=== PATIENT | female | born 1940 | race Caucasian/White ===

== ENCOUNTER 2017-10-06 15:57 | Emergency (ER) | payer OTHER ==
[~2017-10-06] VITALS: Ht 167.6 cm; Wt 81.6 kg
[~2017-10-06 15:57] MED LIST: GABA100C9; LEVO25TA49; OME20GT
[2017-10-06 17:25] LABS: Basophils # (auto) 0.1 uL; Basophils % (auto) 0.8 % (0.0-2.0); Eosinophils # (auto) 0.4 uL; Eosinophils % (auto) 5.7 % (0.0-7.0); Hematocrit 44.7 % (36.0-46.0); Hemoglobin 15.2 g/dL (12.2-16.2); Lymphocytes # (auto) 2.2 uL; Lymphocytes % (auto) 33.2 % (10.0-50.0); Mean Corpuscular Hemoglobin 30.8 pg (28.0-32.0); Mean Corpuscular Volume 90.6 fL (80.0-100.0); Monocytes # (auto) 0.4 uL; Monocytes % (auto) 6.3 % (0.0-12.0); Neutrophils # (auto) 3.6 uL; Nucleated Red Blood Cells % 0.1 %; Platelet Count (auto) 203 10^3/uL (140-450); Red Blood Cells 4.93 10^6/uL (4.0-5.20); White Blood Cell 6.7 10^3/uL (4.4-10.8)
[2017-10-06 17:49] LABS: Alanine Aminotransferase 29 U/L (13-56); Albumin 3.6 g/dL (3.4-5.0); Alkaline Phosphatase 83 U/L (45-117); Anion Gap 6 (5-15); Aspartate Aminotransferase 21 U/L (15-37); BUN/Creatinine Ratio 11.8; Bilirubin, Total 0.3 mg/dL (0.2-1.0); Blood Urea Nitrogen 12 mg/dL (7-18); Calcium 8.3 mg/dL (8.5-10.1); Carbon Dioxide 28 mmol/L (21-32); Chloride 110 mmol/L (98-107); GFR African American 67 mL/min; GFR Non-African American 56 mL/min; Glucose 121 mg/dL (74-106); Potassium 3.9 mmol/L (3.5-5.1); Sodium 144 mmol/L (136-145); Total Protein 6.9 g/dL (6.4-8.2)
[2017-10-06 22:08] VITALS: BP 130/86
== END 2017-10-06 23:33 | disposition left against medical advice (07) ==
LOC: ER 15:57 → EDBD 15:57 → ER 23:33
DX: R07.9 Chest pain, unspecified (principal); R42 Dizziness and giddiness; R53.1 Weakness; E03.9 Hypothyroidism, unspecified; J45.909 Unspecified asthma, uncomplicated; K21.9 Gastro-esophageal reflux disease without esophagitis; R06.02 Shortness of breath; Z88.0 Allergy status to penicillin; Z88.6 Allergy status to analgesic agent; Z90.710 Acquired absence of both cervix and uterus
CPT/HCPCS: 36415; 71046; 80053; 83735; 83880; 84443; 84484; 85025; 93005

== ENCOUNTER 2025-03-10 18:42 | Inpatient (IN) | payer OTHER ==
[~2025-03-10] VITALS: Ht 162.6 cm; Wt 88.3 kg
[~2025-03-10 18:42] MED LIST changes: +GABA-1308; -GABA100C9; +LEVO25TA2; -LEVO25TA49
--- NOTE | 2025-03-10 19:08 | ED.PDOC ---
SOB-HPI HPI Comments HPI: 84 year old female presents to the ED via EMS with a chief complaint of shortness of breath onset 2 days. Per EMS, patient experienced a fall 3 days ago, since then has been experiencing ribcage pressure, shortness of breath. Upon their arrival O2 was was 90% RA, placed on 2L O2 improved to 98%, patient does not use O2 at home. Patient states she lost her balance fell, no head injury. She describes ribcage discomfort as a pressure sensation. Denies head injury, LOC, nausea, vomiting, diarrhea, dizziness, blurred vision, chest pain. No other symptoms or modifying factors present at this time. Initial Vitals BP: 131/71 HR: 88 RR: 18 O2: 98% Temp: 98.6 F Past Medical History: asthma, fibromyalgia, neuropathy Past Surgical History: Denies Social History: Denies ETOH, smoking, and drug use. Medications: Denies Allergies: Acetaminophen, codeine, hydrocodone, penicillin KAY: SOB, RIBCAGE BRUISE L ANTERIOR WALL. TRACE EDEMA., PALE. BRUISE no head or neck injury. No loss of consciousness. HPI: Poor Historian. REVIEW OF SYSTEMS: CONSTITUTIONAL: Denies acute: fever, diaphoresis, chills, generalized weakness. HEAD: Denies acute: headache, photophobia Eyes: Denies acute: Double vision, vision loss, eye pain, eye discharge. EARS: Denies acute: tinnitus, hearing loss, ear discharge, ear pain, THROAT: Denies acute: sore throat, swelling, difficulty swallowing , pain with swallowing, change in voice. NECK: Denies acute: neck pain, neck swelling, stiff neck. HEART: Denies acute : chest pain, palpitations, LUNGS: Denies acute: wheezing, cough, hemoptysis ABDOMEN: Denies acute: abdominal pain, Nausea, Vomiting, diarrhea, melena , hematemesis, hematochezia SKIN: Denies acute: rash, redness, lesions, itchiness. EXTREMITIES: Denies acute: calf pain, numbness, tingling, weakness, denies pain in extremity. Denies acute: Low back pain. Neuro: Denies acute: focal neurological deficit, motor or sensory focal neurological deficit, tremors, seizure like activity, confusion, dizziness, change in mental status, loss of bowel or bladder function, cauda equina like symptoms. : Denies acute: dysuria, hematuria, flank pain, increase in urinary frequency. PSYCH: Denies acute: hallucination, suicidal ideation, homicidal ideation. FEMALE: Denies acute: abnormal vaginal bleeding, foul odor, unusual discharge. PHYSICAL EXAM: General: ----mild----acute distress, awake and alert. Head: normocephalic, atraumatic. Neck: supple, trachea is midline, no swelling. Throat: Normal phonation. Eyes:, no erythema, no purulent discharge, no proptosis, no icterus. Heart: regular rate, regular rhythm, no significant murmur appreciated. Lungs: no apparent respiratory distress, on supplemental oxygen Able to speak in full sentences. No wheezing, no rhonchi, no crackles. No stridors Clear to auscultation bilaterally. Abdomen: non tender to palpation, non distended, soft, no guarding, no rebound, + bowel sounds. Left anterior chest wall ribcage tenderness to palpation. Neuro: Awake, Alert, oriented to name, self, situation, follows commands GCS=15. Speech is normal. Skin: no petechia, no purpura, no cyanosis, slightly-pale, not jaundice. Lower extremities: --trace - Pitting edema no deformity, no focal swelling, no calf TTP. Makes eye contact. moves all four extremities. Face: no apparent facial droop. ED COURSE: DISCLAIMER: This medical document was created using an electronic medical record system with voice recognition software and computerized dictation system. Although this document has been carefully reviewed, there might still be some phonetic and typographical errors. Occasional wrong-word or "sound-alike" substitutions may have occurred due to the inherent limitations of voice recognition software. These areas are purely typographical due to imperfections of the software programs and do not reflect any compromise in the patient's medical care. Please read the chart carefully and recognize, using context, where these substitutions have occurred. 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 Was a procedure done?: No X-Ray, Labs, Meds, VS Vital Signs Date Time Temp Pulse Resp B/P (MAP) Pulse Ox O2 Delivery O2 Flow Rate FiO2 03/10/25 23:15 97.9 79 17 123/78 (93) 99 97.9 03/10/25 21:33 16 94 Room Air* 0 21 03/10/25 21:12 97.9 79 19 123/52 (75) 92 97.9 03/10/25 18:49 98.6 88 18 131/71 98 98.6 Lab Test 03/10/25 20:45 03/10/25 19:21 Range/Units Troponin I High Sensitivity 4 4 </=34 ng/L White Blood Count 13.3 H 4.4-10.8 10^3/uL Red Blood Count 4.53 4.0-5.20 10^6/uL Hemoglobin 13.9 12.2-16.2 g/dL Hematocrit 40.4 36.0-46.0 % Mean Corpuscular Volume 89.1 80.0-100.0 fL Mean Corpuscular Hemoglobin 30.8 28.0-32.0 pg Mean Corpuscular Hemoglobin Concent 34.6 32.0-36.0 g/dL Red Cell Distribution Width 12.6 11.8-14.3 % Platelet Count 199 140-450 10^3/uL Mean Platelet Volume 8.1 6.9-10.8 fL Neutrophils (%) (Auto) 81.8 H 37.0-80.0 % Lymphocytes (%) (Auto) 11.0 10.0-50.0 % Monocytes (%) (Auto) 6.6 0.0-12.0 % Eosinophils (%) (Auto) 0.3 0.0-7.0 % Basophils (%) (Auto) 0.3 0.0-2.0 % Neutrophils # (Auto) 10.9 H 1.6-8.6 10 ^3/uL Lymphocytes # (Auto) 1.5 0.4-5.4 10 ^3/uL Monocytes # (Auto) 0.9 0-1.3 10 ^3/uL Eosinophils # (Auto) 0 0-0.8 10 ^3/uL Basophils # (Auto) 0 0-0.2 10 ^3/uL Nucleated Red Blood Cells 0.0 % Sodium Level 143 136-145 mmol/L Potassium Level 3.9 3.5-5.1 mmol/L Chloride Level 102 98-107 mmol/L Carbon Dioxide Level 32 H 20-31 mmol/L Anion Gap 9 5-15 Blood Urea Nitrogen 19 9-23 mg/dL Creatinine 1.26 H 0.550-1.02 mg/dL Glomerular Filtration Rate Calc 42 >90 mL/min BUN/Creatinine Ratio 15.1 10.0-20.0 Serum Glucose 186 H 74-106 mg/dL Calcium Level 8.4 L 8.7-10.4 mg/dL Total Bilirubin 0.7 0.2-1.0 mg/dL Aspartate Amino Transferase (AST) 21 13-40 U/L Alanine Aminotransferase (ALT) 12 7-40 U/L Alkaline Phosphatase 61 46-116 U/L Creatine Kinase 165 H 34-145 U/L B-Type Natriuretic Peptide 42.19 0-100 pg/mL Total Protein 6.1 5.7-8.2 g/dL Albumin 3.8 3.2-4.8 g/dL Current Medications Medications (Trade) Dose Ordered Sig/Chantal Route Start Time Stop Time Status Last Admin Ceftriaxone Sodium 50 ml @ 100 mls/hr ONCE ONCE IV 03/10/25 21:00 03/10/25 21:29 DC 03/10/25 21:11 Albuterol (Ventolin Medneb) 2.5 mg ONCE ONCE NEB 03/10/25 21:15 03/10/25 21:16 DC 03/10/25 21:28 Ipratropium [place] (Atrovent Medneb) 1 mg ONCE ONCE NEB 03/10/25 21:15 03/10/25 21:16 DC 03/10/25 21:28 Methylprednisolone Sodium Succinate (Solu Medrol) 125 mg ONCE ONCE IV 03/10/25 21:15 03/10/25 21:16 DC 03/10/25 21:16 [facility] [id number] [place] [id number] Ph: [phone] DIAGNOSTIC IMAGING Diagnostic Imaging Report : [id number] Signed PATIENT: TINO VILLANUEVA ACCT: [id number] UNIT: [id number] : 1940 LOC: ER ROOM / BED: / AGE / SEX: 84 / F ADM STATUS: REG ER SERVICE 08 ORDERING PHYSICIAN: ROMAINE ASHLEY DO PROCEDURE(s): CXRP - CHEST PORTABLE REASON: sob ORDER NUMBER(s): [id number], ACCESSION NUMBER(s): [id number] CHEST RADIOGRAPH Indication: sob Technique: Single frontal view of the chest was obtained COMPARISON: None FINDINGS: Lines and Tubes: None Lungs: Left lower lobe opacity may reflect atelectasis or mild pneumonia Pleura: Small pleural effusion. No pneumothorax. Cardiomediastinal contours: Unremarkable Bones: Unremarkable IMPRESSION: 1. Left lower lobe opacity may reflect atelectasis or mild pneumonia. 2. Small left pleural effusion. ATED BY: ELLIOTT FRANCIS MD DICTATED DATE/TIME: 03/10/252002 SIGNED BY: ELLIOTT FRANCIS MD SIGNED DATE/TIME: 03/10/252002 CC: Time of 1ST Reevaluation: 19:20 Reevaluation 1ST: Unchanged Time of 2ND Reevaluation: 21:19 (The case was discussed with the admitting team (HPI, physical exam, labs and diagnostic tests that were available at the time of disposition, ED course, treatment plan) on the phone. They agreed to evaluate the patient to their service and assume care of this patient from this point forward. --- Leila. He requested to order a CT of chest and breathing treatment) Patient Education/Counseling: Diagnosis, Treatment Family Education/Counseling: No Family Present Departure 1 Departure Time of Disposition: 20:56 Impression: Primary Impression: Hypoxemia Additional Impressions: Dyspnea Fall Pneumonia Pleural effusion Pulmonary embolus Disposition: ADMITTED INPATIENT Admit to: Tele Condition: Guarded Discharged With: Self Critical Care Note Critical Care Time?: No I personally scribed for ROMAINE ASHLEY DO ([email or web address]) on 03/10/25 at 19:08. Electronically submitted by Catia [email or web address]). I personally scribed for ROMAINE ASHLEY DO ([email or web address]) on 03/10/25 at 19:22. Electronically submitted by Catia Pittman ([email or web address]). I personally scribed for ROMAINE ASHLEY DO ([email or web address]) on 03/10/25 at 20:37. Electronically submitted by Catia Pittman ([email or web address]). ROMAINE ASHLEY DO Mar 10, 2025 19:08
[2025-03-10 19:37] LABS: Hematocrit 40.4 % (36.0-46.0); Hemoglobin 13.9 g/dL (12.2-16.2); Mean Corpuscular Hemoglobin 30.8 pg (28.0-32.0); Mean Corpuscular Volume 89.1 fL (80.0-100.0); Nucleated Red Blood Cells % 0.0 %
[2025-03-10 19:56] LABS: Alanine Aminotransferase 12 U/L (7-40); Albumin 3.8 g/dL (3.2-4.8); Alkaline Phosphatase 61 U/L (46-116); Anion Gap 9 (5-15); BUN/Creatinine Ratio 15.1 (10.0-20.0); Blood Urea Nitrogen 19 mg/dL (9-23); Calcium 8.4 mg/dL (8.7-10.4); Carbon Dioxide 32 mmol/L (20-31); Chloride 102 mmol/L (98-107); Creatine Kinase IFCC 165 U/L (34-145); Glucose 186 mg/dL (74-106); Potassium 3.9 mmol/L (3.5-5.1); Sodium 143 mmol/L (136-145); Total Protein 6.1 g/dL (5.7-8.2)
[2025-03-10 19:57] LABS: Bilirubin, Total 0.7 mg/dL (0.2-1.0)
--- NOTE | 2025-03-10 20:06 | DVH ---
CHEST RADIOGRAPH Indication: sob Technique: Single frontal view of the chest was obtained COMPARISON: None FINDINGS: Lines and Tubes: None Lungs: Left lower lobe opacity may reflect atelectasis or mild pneumonia Pleura: Small pleural effusion. No pneumothorax. Cardiomediastinal contours: Unremarkable Bones: Unremarkable IMPRESSION: 1. Left lower lobe opacity may reflect atelectasis or mild pneumonia. 2. Small left pleural effusion.
[2025-03-10] MEDS: methylPREDNISolone SOD SUCC 125 MG/2 ML VL IV ONE (21:16)
[2025-03-10] MEDS: IPRATROPIUM BROM 0.5 MG/2.5ML INH SOL NEB ONE (21:28)
[2025-03-10] MEDS: ALBUTEROL SULF 2.5 MG/0.5ML(0.5%) NEB SOLN NEB ONE (21:28)
[2025-03-10] MEDS ORDERED: IOHEXOL 350 MG/ML 100ML IJ ONE (21:29)
--- NOTE | 2025-03-10 23:23 | DVH ---
CTA Chest with intravenous contrast INDICATION: sob COMPARISON: None TECHNIQUE: Multidetector spiral CTA of the chest was performed of the chest with intravenous contrast . PULMONARY ANGIOGRAPHY PROTOCOL was utilized using a bolus-tracking technique centered on the main p ulmonary artery. Axial, coronal and sagittal multiplanar and MIP reformats were performed. Radiation Dose : 1. Chest: CTDI volume is 23.34 mGy. Dose-length product is 1825 mGy*cm The dose indicators for CT are the volume Computed Tomography (CT) Dose Index (CTDIvol) and the Dose Length Product (DLP), and are measured in units of mGy and mGy-cm, respectively. These indicators are not patient dose, but values generated from the CT scanner acquisition factors. The report includes radiation exposure data for exposures received during this examination. Findings: Pulmonary artery: Multiple segmental/subsegmental pulmonary emboli bilaterally. No significant right heart strain Lower neck: Normal thyroid. Lungs: Left lower lobe consolidation may reflect mild pneumonia. Heart/Vascular Structures: Normal heart size. No pericardial effusion. Lymph Nodes: No adenopathy Pleura: Trace left pleural effusion. Musculoskeletal: No acute osseous abnormality. Soft tissues: Normal. Upper abdomen: Limited portions of the upper abdomen are unremarkable. IMPRESSION: 1. Multiple bilateral segmental/subsegmental pulmonary emboli. 2. No significant right heart strain. 3. Left lower lobe consolidation may reflect mild pneumonia. 4. Trace left pleural effusion. 5. Critical findings were communicated to and read back by Dr. Card at 03/10/2025 11:18 PM PST.
[2025-03-11] VITALS (11 sets, daily range): BP systolic 117–146; BP diastolic 54–75; PULSE 66–79; RESP 16–20; TEMP 97.2–97.9; O2SAT 92–98
[2025-03-11] MEDS ORDERED: ALBUTEROL SULF 2.5 MG/0.5ML(0.5%) NEB SOLN NEB PRN
[2025-03-11] MEDS ORDERED: NITROGLYCERIN 0.4 MG SL TAB SL PRN
[2025-03-11] MEDS ORDERED: MORPHINE SULFATE INJ 2 MG/ml SYRG IV PRN ×2
[2025-03-11] MEDS ORDERED: ONDANSETRON HCL 4 MG/2 ML VIAL IV PRN
[2025-03-11 02:05] LABS: INR 0.98 (0.9-1.15); Partial Thromboplastin Time 31.3 SEC (24.5-34.5); Prothrombin Time 10.4 sec (9.3-11.8)
[2025-03-11] MEDS: ENOXAPARIN SOD 100 MG/1 ML SYRINGE SC ONE ×2 (03:15→06:01)
[2025-03-11] MEDS: FUROSEMIDE 20 MG/2 ML VIAL IV ONE (03:15)
[2025-03-11] MEDS: AZITHROMYCIN 500MG/ 250ML 250 ML IV ONE (04:04)
--- NOTE | 2025-03-11 05:03 | DVHHP2 ---
History of Present Illness Reason for Visit: Shortness for breath History of Present Illness 84-year-old female presents for evaluation of shortness for breath. Patient endorses a two day history of worsening shortness for breath with associated chest pressure. Denies chest pain or palpitations. No cough or fever. Past Medical History Fibromyalgia and asthma Past Surgical History Denies Family History Noncontributory Smoke: No ALCOHOL: none Drugs: None Lives: with Family Review of Systems Review of Systems Review of systems are currently negative otherwise addressed in HPI Allergies: Coded Allergies: Acetaminophen (Unverified Allergy, Severe, NAUSEA, 06/24/11) Hydrocodone (Unverified Allergy, Severe, NAUSEA, 06/24/11) Penicillin G (Unverified Allergy, Severe, 06/24/11) Codeine (Unverified Adverse Reaction, Severe, NAUSEA, 06/24/11) Medications Current Medications Medications Dose Ordered Sig/Chantal Route Start Time Stop Time Status Last Admin Dose Admin Enoxaparin Sodium 80 mg Q12HR SC 03/11/25 10:00 Levothyroxine Sodium 50 mcg QAM@0600 PO 03/11/25 06:00 Hydrochlorothiazide 25 mg DAILY PO 03/11/25 10:00 Gabapentin 400 mg BID PO 03/11/25 10:00 Albuterol 2.5 mg Q6HPRN PRN NEB 03/11/25 00:00 Azithromycin 250 ml @ 125 mls/hr DAILY IV 03/12/25 10:00 Ondansetron HCl 4 mg Q4HP PRN IV 03/11/25 00:00 Morphine Sulfate 2 mg Q6HPRN PRN IV 03/11/25 00:00 Nitroglycerin 0.4 mg Q5MINP PRN SL 03/11/25 00:00 Morphine Sulfate 2 mg Q30M PRN IV 03/11/25 00:00 Exam Vital Signs Vital Signs Date Time Temp Pulse Resp B/P (MAP) Pulse Ox O2 Delivery O2 Flow Rate FiO2 03/11/25 03:53 97.7 77 17 146/75 (98) 96 97.7 03/11/25 03:02 Nasal Cannula 2.0 03/11/25 00:04 21 Exam Gen: 84-year-old female in mild distress Skin: Warm, dry, normal color and texture, no rash. HEENT: Normocephalic atraumatic, mucous membranes moist and pink. Neck: Cervical and supraclavicular nodes normal without enlargement, trachea is midline, thyroid gland is normal without masses. Pulmonary: Clear to auscultation and percussion bilaterally. Cardiac: Regular rate and rhythm. No murmur Abdomen: Soft, nontender, nondistended, bowel sounds present all 4 quadrants, no guarding, no rigidity, no organomegaly. Extremities: No cyanosis, clubbing, no edema Neuro: Cranial nerves II through XII grossly intact, normal affect and speech, no focal motor deficits. Labs/Xrays ORDERING PHYSICIAN: ROMAINE CARD DO PROCEDURE(s): CXRP - CHEST PORTABLE REASON: sob ORDER NUMBER(s): [id number], ACCESSION NUMBER(s): [id number] CHEST RADIOGRAPH Indication: sob Technique: Single frontal view of the chest was obtained COMPARISON: None FINDINGS: Lines and Tubes: None Lungs: Left lower lobe opacity may reflect atelectasis or mild pneumonia Pleura: Small pleural effusion. No pneumothorax. Cardiomediastinal contours: Unremarkable Bones: Unremarkable IMPRESSION: 1. Left lower lobe opacity may reflect atelectasis or mild pneumonia. 2. Small left pleural effusion. 20: ORDERING PHYSICIAN: ROMAINE CARD DO PROCEDURE(s): CTACH - CT ANGIO CHEST CONTRAST REASON: sob ORDER NUMBER(s): [id number], ACCESSION NUMBER(s): [id number] CTA Chest with intravenous contrast INDICATION: sob COMPARISON: None TECHNIQUE: Multidetector spiral CTA of the chest was performed of the chest with intravenous contrast. PULMONARY ANGIOGRAPHY PROTOCOL was utilized using a bolus- tracking technique centered on the main pulmonary artery. Axial, coronal and sagittal multiplanar and MIP reformats were performed. Radiation Dose : 1. Chest: CTDI volume is 23.34 mGy. Dose-length product is 1825 mGy*cm The dose indicators for CT are the volume Computed Tomography (CT) Dose Index (CTDIvol) and the Dose Length Product (DLP), and are measured in units of mGy and mGy-cm, respectively. These indicators are not patient dose, but values generated from the CT scanner acquisition factors. The report includes radiation exposure data for exposures received during this examination. Findings: Pulmonary artery: Multiple segmental/subsegmental pulmonary emboli bilaterally. No significant right heart strain Lower neck: Normal thyroid. Lungs: Left lower lobe consolidation may reflect mild pneumonia. Heart/Vascular Structures: Normal heart size. No pericardial effusion. Lymph Nodes: No adenopathy Pleura: Trace left pleural effusion. Musculoskeletal: No acute osseous abnormality. Soft tissues: Normal. Upper abdomen: Limited portions of the upper abdomen are unremarkable. IMPRESSION: 1. Multiple bilateral segmental/subsegmental pulmonary emboli. 2. No significant right heart strain. 3. Left lower lobe consolidation may reflect mild pneumonia. 4. Trace left pleural effusion. 5. Critical findings were communicated to and read back by Dr. Card at 03/10/2025 11:18 PM PST. Labs Test 03/11/25 00:06 03/10/25 20:45 03/10/25 19:21 Range/Units Prothrombin Time 10.4 9.3-11.8 sec Prothrombin Time INR 0.98 0.9-1.15 Activated Partial Thromboplast Time 31.3 24.5-34.5 SEC Troponin I High Sensitivity 4 </=34 ng/L White Blood Count 13.3 H 4.4-10.8 10^3/uL Red Blood Count 4.53 4.0-5.20 10^6/uL Hemoglobin 13.9 12.2-16.2 g/dL Hematocrit 40.4 36.0-46.0 % Mean Corpuscular Volume 89.1 80.0-100.0 fL Mean Corpuscular Hemoglobin 30.8 28.0-32.0 pg Mean Corpuscular Hemoglobin Concent 34.6 32.0-36.0 g/dL Red Cell Distribution Width 12.6 11.8-14.3 % Platelet Count 199 140-450 10^3/uL Mean Platelet Volume 8.1 6.9-10.8 fL Neutrophils (%) (Auto) 81.8 H 37.0-80.0 % Lymphocytes (%) (Auto) 11.0 10.0-50.0 % Monocytes (%) (Auto) 6.6 0.0-12.0 % Eosinophils (%) (Auto) 0.3 0.0-7.0 % Basophils (%) (Auto) 0.3 0.0-2.0 % Neutrophils # (Auto) 10.9 H 1.6-8.6 10 ^3/uL Lymphocytes # (Auto) 1.5 0.4-5.4 10 ^3/uL Monocytes # (Auto) 0.9 0-1.3 10 ^3/uL Eosinophils # (Auto) 0 0-0.8 10 ^3/uL Basophils # (Auto) 0 0-0.2 10 ^3/uL Nucleated Red Blood Cells 0.0 % Sodium Level 143 136-145 mmol/L Potassium Level 3.9 3.5-5.1 mmol/L Chloride Level 102 98-107 mmol/L Carbon Dioxide Level 32 H 20-31 mmol/L Anion Gap 9 5-15 Blood Urea Nitrogen 19 9-23 mg/dL Creatinine 1.26 H 0.550-1.02 mg/dL Glomerular Filtration Rate Calc 42 >90 mL/min BUN/Creatinine Ratio 15.1 10.0-20.0 Serum Glucose 186 H 74-106 mg/dL Calcium Level 8.4 L 8.7-10.4 mg/dL Total Bilirubin 0.7 0.2-1.0 mg/dL Aspartate Amino Transferase (AST) 21 13-40 U/L Alanine Aminotransferase (ALT) 12 7-40 U/L Alkaline Phosphatase 61 46-116 U/L Creatine Kinase 165 H 34-145 U/L B-Type Natriuretic Peptide 42.19 0-100 pg/mL Total Protein 6.1 5.7-8.2 g/dL Albumin 3.8 3.2-4.8 g/dL SEPSIS Sepsis Screen Date sepsis recognized/suspect: Mar 10, 2025 Time Sepsis recognized/suspect: 1848 Recent Procedure: No On Antibiotic Therapy: No Respiratory Rate >20: No Heart Rate >90: No Temp<36 C (96.8 F) or >38.3 C: No SBP <90 or MAP <65 mmHG: No New Acute Mental Status Change: No Is the patient on CPAP, BIPAP,: No Physician Orders Ct Angio Chest Contrast (03/10/25 21:08) Enoxaparin Sodium (Lovenox) (03/11/25 10:00) Levothyroxine Tablet (Synthroid Tablet) (03/11/25 06:00) Hydrochlorothiazide Tablet (Hydrochlorot (03/11/25 10:00) Gabapentin Capsule (Neurontin Capsule) (03/11/25 10:00) Albuterol Medneb (Ventolin Medneb) (03/11/25 00:00) *Consult (03/10/25 23:48) Admit (03/10/25 23:48) Ondansetron Hcl (Zofran) (03/11/25 00:00) Complete Blood Count (03/11/25 04:00) Comprehensive Metabolic Panel (03/11/25 04:00) Cardiac Diet-2gna,Lofat,Lochol (03/11/25 Breakfast) Echo 2d Mode Cardiac Dop (03/10/25 23:48) Condition: Fair (03/10/25 23:48) Bedrest With Bathroom Privileg (03/10/25 23:48) Morphine Sulfate Injection (03/11/25 00:00) Nitroglycerin Sublingual (Ntrostat Subli (03/11/25 00:00) Morphine Sulfate Injection (03/11/25 00:00) Stat Ekg For Chest Pain (03/10/25 23:48) Notify Md Of Changes From Base (03/10/25 23:48) Seed Analyst For 24 Hours (03/10/25 23:48) Emergency Dysrhythmia Protocol (03/10/25 23:48) Rhythm Strips Once Every Shift (03/10/25 23:48) Oxygen By Nasal Cannula (03/10/25 23:48) Azithromycin 500mg/ 250ml (Zithromax 50 (03/12/25 10:00) * Surface [employer] Logger Consult (03/11/25 04:52) Vital Signs Date Time Temp Pulse Resp B/P (MAP) Pulse Ox O2 Delivery O2 Flow Rate FiO2 03/11/25 03:53 97.7 77 17 146/75 (98) 96 97.7 03/11/25 03:15 132/78 03/11/25 03:02 20 95 Nasal Cannula 2.0 03/11/25 01:20 97.6 88 17 124/76 (92) 97 97.6 03/11/25 00:04 74 16 94 21 03/10/25 23:15 97.9 79 17 123/78 (93) 99 97.9 03/10/25 21:33 16 94 Room Air* 0 21 03/10/25 21:12 97.9 79 19 123/52 (75) 92 97.9 Laboratory Tests Test 03/10/25 19:21 White Blood Count 13.3 10^3/uL (4.4-10.8) H Medications Medications Dose Ordered Sig/Chantal Route Start Time Stop Time Status Last Admin Dose Admin Albuterol 2.5 mg ONCE ONCE NEB 03/10/25 21:15 03/10/25 21:16 DC 03/10/25 21:28 2.5 MG Azithromycin 250 ml @ 125 mls/hr ONCE ONCE IV 03/11/25 00:45 03/11/25 02:44 DC 03/11/25 04:04 125 MLS/HR Ceftriaxone Sodium 50 ml @ 100 mls/hr ONCE ONCE IV 03/10/25 21:00 03/10/25 21:29 DC 03/10/25 21:11 100 MLS/HR Enoxaparin Sodium 80 mg ONCE ONCE SC 03/10/25 23:30 03/10/25 23:31 DC 03/11/25 03:15 80 MG Furosemide 20 mg ONCE ONCE IV 03/10/25 21:00 03/10/25 21:05 DC 03/11/25 03:15 20 MG Ipratropium [place] 1 mg ONCE ONCE NEB 03/10/25 21:15 03/10/25 21:16 DC 03/10/25 21:28 1 MG Methylprednisolone Sodium Succinate 125 mg ONCE ONCE IV 03/10/25 21:15 03/10/25 21:16 DC 03/10/25 21:16 125 MG Assessment/Plan Assessment/Plan Assessment Pulmonary embolus Questionable pneumonia Acute kidney injury Plan Admit the patient to telemetry to the hospitalist Michael bChristinaiparmjit Echocardiogram pending Pulmonary consultation Rocephin/azithromycin Resume home medications Continue treatment per orders. Plan discussed with: Patient My Orders Orders - ROSA ELENA FENG AGACNP Procedure Category Date Status Time Enoxaparin Sodium PHA 03/11/25 In Process (Lovenox) 10:00 Levothyroxine Tablet PHA 03/11/25 In Process (Synthroid Tablet) 06:00 Hydrochlorothiazide PHA 03/11/25 In Process Tablet (Hydrochlorot 10:00 Gabapentin Capsule PHA 03/11/25 In Process (Neurontin Capsule) 10:00 Albuterol Medneb PHA 03/11/25 In Process (Ventolin Medneb) 00:00 *Consult CONS 03/10/25 Transmitted 23:48 Admit ADMIT 03/10/25 Transmitted 23:48 Ondansetron Hcl PHA 03/11/25 In Process (Zofran) 00:00 Complete Blood Count LAB 03/11/25 Logged 04:00 Comprehensive LAB 03/11/25 Logged Metabolic Panel 04:00 Cardiac DIET 03/11/25 Transmitted Diet-2gna,Lofat,Lochol Breakfast Echo 2d Mode Cardiac US 03/10/25 Logged DOP 23:48 Condition: Fair ROSE 03/10/25 In Process 23:48 Bedrest With Bathroom ROSE 03/10/25 In Process Privileg 23:48 Morphine Sulfate PHA 03/11/25 In Process Injection 00:00 Nitroglycerin PHA 03/11/25 In Process Sublingual (Ntrostat 00:00 Morphine Sulfate PHA 03/11/25 In Process Injection 00:00 Stat Ekg For Chest ROSE 03/10/25 In Process Pain 23:48 Notify Md Of Changes ROSE 03/10/25 In Process From Base 23:48 Seed Analyst For ROSE 03/10/25 In Process 24 Hours 23:48 Emergency Dysrhythmia ROSE 03/10/25 In Process Protocol 23:48 Rhythm Strips Once ROSE 03/10/25 In Process Every Shift 23:48 Oxygen By Nasal RT 03/10/25 Transmitted Cannula 23:48 Azithromycin 500mg/ PHA 03/12/25 In Process 250ml (Zithromax 50 10:00 * [employer] Logger CONS 03/11/25 Transmitted Consult 04:52 Date of Service: Mar 10, 2025 Billing Provider: ROSA ELENA FENG Common Visit Codes: [id number] INP/OBS CARE (HIGH) ROSA ELENA FENG Mar 11, 2025 05:03
[2025-03-11] MEDS: LEVOTHYROXINE SODIUM 50 MCG TAB PO SCH (06:01)
[2025-03-11 07:55] LABS: Urine Protein, UAD Negative (Negative)
[2025-03-11 09:56] LABS: Hematocrit 41.2 % (36.0-46.0); Hemoglobin 14.0 g/dL (12.2-16.2); Mean Corpuscular Hemoglobin 30.2 pg (28.0-32.0); Mean Corpuscular Volume 88.6 fL (80.0-100.0); Nucleated Red Blood Cells % 0.0 %
[2025-03-11] MEDS: GABAPENTIN 400 MG CAP PO SCH (10:00)
[2025-03-11 10:12] LABS: Alanine Aminotransferase 12 U/L (7-40); Albumin 4.2 g/dL (3.2-4.8); Alkaline Phosphatase 60 U/L (46-116); Anion Gap 12 (5-15); BUN/Creatinine Ratio 14.7 (10.0-20.0); Blood Urea Nitrogen 19 mg/dL (9-23); Calcium 8.7 mg/dL (8.7-10.4); Carbon Dioxide 29 mmol/L (20-31); Sodium 139 mmol/L (136-145); Total Protein 7.0 g/dL (5.7-8.2)
[2025-03-11 10:13] LABS: Bilirubin, Total 0.6 mg/dL (0.2-1.0); Chloride 98 mmol/L (98-107); Glucose 294 mg/dL (74-106); Potassium 3.3 mmol/L (3.5-5.1)
[2025-03-11] MEDS: hydroCHLOROthiazide 25 MG TAB PO SCH (11:45)
[2025-03-11] MEDS: ENOXAPARIN SOD 100 MG/1 ML SYRINGE SC SCH ×2 (11:45→21:25)
--- NOTE | 2025-03-11 12:59 | DVHPN2 ---
Changes from previous H/P or p: No Changes Objective Vitals Vital Signs Date Time Temp Pulse Resp B/P (MAP) Pulse Ox O2 Delivery O2 Flow Rate FiO2 03/11/25 11:45 128/57 03/11/25 09:10 95 Nasal Cannula* 2 28 03/11/25 09:00 97.2 71 17 97.2 Intake/Output Intake and Output 03/11/25 07:00 Intake Total 0 ml Balance 0 ml Intake Oral 0 ml # Voids 3 Medications Current Medications Medications Dose Ordered Sig/Chantal Route Start Time Stop Time Status Last Admin Dose Admin Enoxaparin Sodium 80 mg Q12HR SC 03/11/25 10:00 03/11/25 11:45 80 MG Levothyroxine Sodium 50 mcg QAM@0600 PO 03/11/25 06:00 03/11/25 06:01 50 MCG Hydrochlorothiazide 25 mg DAILY PO 03/11/25 10:00 03/11/25 11:45 25 MG Gabapentin 400 mg BID PO 03/11/25 10:00 Albuterol 2.5 mg Q6HPRN PRN NEB 03/11/25 00:00 Azithromycin 250 ml @ 125 mls/hr DAILY IV 03/12/25 10:00 Ondansetron HCl 4 mg Q4HP PRN IV 03/11/25 00:00 Morphine Sulfate 2 mg Q6HPRN PRN IV 03/11/25 00:00 Nitroglycerin 0.4 mg Q5MINP PRN SL 03/11/25 00:00 Morphine Sulfate 2 mg Q30M PRN IV 03/11/25 00:00 Laboratory Results Laboratory Tests 03/11/25 09:20 Chemistry Test 03/10/25 19:21 03/11/25 09:20 Albumin 3.8 g/dL (3.2-4.8) 4.2 g/dL (3.2-4.8) Calcium Level 8.4 mg/dL (8.7-10.4) L 8.7 mg/dL (8.7-10.4) Total Protein 6.1 g/dL (5.7-8.2) 7.0 g/dL (5.7-8.2) Coagulation Test 03/11/25 00:06 Prothrombin Time 10.4 sec (9.3-11.8) Prothrombin Time INR 0.98 (0.9-1.15) Activated Partial Thromboplast Time 31.3 SEC (24.5-34.5) Cardiac Markers Test 03/10/25 19:21 B-Type Natriuretic Peptide 42.19 pg/mL (0-100) LFT Test 03/10/25 19:21 03/11/25 09:20 Alanine Aminotransferase (ALT) 12 U/L (7-40) 12 U/L (7-40) Alkaline Phosphatase 61 U/L (46-116) 60 U/L (46-116) Aspartate Amino Transferase (AST) 21 U/L (13-40) 23 U/L (13-40) Total Bilirubin 0.7 mg/dL (0.2-1.0) 0.6 mg/dL (0.2-1.0) Urinalysis Test 03/11/25 02:51 Urine Color Colorless (Yellow) Urine Clarity Clear (Clear) Urine pH 5.5 (5.0-9.0) Urine Specific [place] 1.020 (1.001-1.035) Urine Protein Negative (Negative) Urine Ketones Negative (Negative) Urine Blood Trace /uL (Negative) H Urine Nitrite Negative (Negative) Urine Bilirubin Negative (Negative) Urine Urobilinogen Normal mg/dL (Negative) Urine Leukocyte Esterase 3+ /uL (Negative) Urine RBC 5 /hpf (0 - 4) Urine Microscopic WBC 14 /HPF (0-5) H Urine Squamous Epithelial Cells Few /hpf (<5) Urine Bacteria None seen /hpf (None Seen) Urine Glucose Normal mg/dL (Normal) Labs and/or images reviewed: Labs reviewed by me, Image(s) reviewed by me Assessment/Plan Assessment/Plan Acute hypoxic respiratory failure: Oxygen by nasal cannula Acute bilateral pulmonary emboli: Lovenox 1 milligram/kilos subQ b.i.d., pulmonary consult for Dr. Ames cardiology consult for Dr. Landers, echocardiogram result pending Left lower lobe pneumonia: Rocephin azithromycin Acute asthma exacerbation: Med neb Hypothyroidism: Synthroid Lorrie test pending Flu test pending Time spent 66 minutes Advanced care planning time 20 minutes Patient is full code Plan discussed with: Patient My Orders Orders - MILY TAMEZ MD Procedure Category Date Status Time Ceftriaxone Ivpb PHA 03/12/25 Transmitted Rocephin 09:00 Ceftriaxone Ivpb PHA 03/11/25 Transmitted Rocephin 13:00 Date of Service: Mar 11, 2025 Billing Provider: MILY TAMEZ MD Common Visit Codes: [id number] CARE 30-74 MIN MILY TAMEZ MD Mar 11, 2025 12:59
[2025-03-11] MEDS ORDERED: MORPHINE SULFATE 4 MG/ML SYR/VIAL IV PRN (13:30)
--- NOTE | 2025-03-11 15:38 | DVHINCON2 ---
Date Seen: Mar 11, 2025 Referring Physician MD Arya Reason for Consultation Bilateral pulmonary emboli History of Present Illness This is a 84-year-old female patient who presents to emergency room with chief complaint of shortness of breath and mechanical fall. The patient reports she has been having shortness of breath for approximately one year. She reports that the reason that she came to the hospital was because that she sustained a fall at home. She reports that she was in bed getting her dog and somehow fell, but denies losing consciousness or hitting her head. She reports that it all happened so quickly that she is unsure of how the fall occurred. Cardiology has been consulted at this time for bilateral pulmonary emboli. No twelve lead electrocardiogram was obtained in the emergency room. A twelve lead electrocardiogram was ordered at time of assessment and reveals normal sinus rhythm with first-degree conduction delay, prolonged QTc interval and without any significant ST segment changes. She denies any chest pain, palpitations, or lightheadedness. Troponin levels have been negative. Significant past medical history includes asthma, thyroid disease, fibromyalgia, peripheral neuropathy, and obesity. Past Medical History Past medical history reviewed. No other significant than mentioned above. Past Surgical History Total hysterectomy Family History Family history reviewed. Social History Denies the use of tobacco, alcohol or illicit drugs. Allergies: Coded Allergies: Acetaminophen (Unverified Allergy, Severe, NAUSEA, 06/24/11) Hydrocodone (Unverified Allergy, Severe, NAUSEA, 06/24/11) Penicillin G (Unverified Allergy, Severe, 06/24/11) Codeine (Unverified Adverse Reaction, Severe, NAUSEA, 06/24/11) Home Meds Reported Medications Levothyroxine Sodium (Synthroid) 25 Mcg Tab 06/24/11 Omeprazole (Prilosec Susp (For Gt)) 20 Mg Ss 06/24/11 Gabapentin (Gabapentin) 100 Mg Cap 06/24/11 Home Meds Home medications reviewed. Current Medications Current Medications Medications (Trade) Dose Ordered Sig/Chantal Route PRN Reason Start Time Stop Time Status Last Admin Enoxaparin Sodium (Lovenox) 80 mg Q12HR SC 03/11/25 10:00 03/11/25 14:31 DC 03/11/25 11:45 Levothyroxine Sodium (Synthroid Tablet) 50 mcg QAM@0600 PO 03/11/25 06:00 03/11/25 06:01 Hydrochlorothiazide (hydroCHLOROthiazide TABLET) 25 mg DAILY PO 03/11/25 10:00 03/11/25 11:45 Gabapentin (Neurontin Capsule) 400 mg BID PO 03/11/25 10:00 Albuterol (Ventolin Medneb) 2.5 mg Q6HPRN PRN NEB SHORTNESS OF BREATH 03/11/25 00:00 Azithromycin 250 ml @ 125 mls/hr DAILY IV 03/12/25 10:00 Ondansetron HCl (Zofran) 4 mg Q4HP PRN IV NAUSEA / VOMITING 03/11/25 00:00 Morphine Sulfate 2 mg Q6HPRN PRN IV SEVERE PAIN (7-10 PAIN SCALE) 03/11/25 00:00 03/11/25 13:19 DC Nitroglycerin (Ntrostat Sublingual) 0.4 mg Q5MINP PRN SL FOR CHEST PAIN 03/11/25 00:00 Morphine Sulfate 2 mg Q30M PRN IV FOR CHEST PAIN 03/11/25 00:00 Ceftriaxone Sodium 50 ml @ 100 mls/hr DAILY@09 IV 03/12/25 09:00 Morphine Sulfate 2 mg Q6HPRN PRN IV SEVERE PAIN (7-10 PAIN SCALE) 03/11/25 13:30 Enoxaparin Sodium (Lovenox) 90 mg Q12HR SC 03/11/25 22:00 Review of Systems Constitutional: No symptom reported Ears, Nose, & Throat: No symptom reported Eyes: No symptom reported Neurological: No symptoms reported Pulmonary/Respiratory: Shortness of breath Cardiovascular: No symptom reported Gastrointestinal: No symptom reported Genitourinary: No symptom reported Musculoskeletal: No symptom reported Skin: No symptom reported Psychiatric: No symptom reported Endocrine: No symptom reported Hematologic/Lymphatic: No symptom reported Vital Signs Vital Signs Date Time Temp Pulse Resp B/P (MAP) Pulse Ox O2 Delivery O2 Flow Rate FiO2 03/11/25 11:45 128/57 03/11/25 09:10 95 Nasal Cannula* 2 28 03/11/25 09:00 97.2 71 17 97.2 Physical Exam General Appearance: Cooperative. Morbidly obese Pulmonary/Respiratory: Clear, bilateral breaths sounds. Cardiovascular/Chest: Regular rate and rhythm. Peripheral Pulses: 2+ Radial (R). 2+ Radial (L). 2+ Pedal (R). 2+ Pedal (L) Abdominal Exam: Normal bowel sounds. Ankle Exam: Negative ankle edema Lower extremities: Negative lower extremity edema Neuro/Mental Status: A/OX4, coherent. Thoughts/Psych: Normal thought pattern. Appropriate mood and affect. Good judgment and insight. Appearance: No acute distress. Skin Exam: Normal inspection. Normal color. Warm and dry. Labs/Diagnostic Data Labs Test 03/11/25 09:20 03/11/25 02:51 03/11/25 00:06 03/10/25 20:45 Range/Units White Blood Count 11.2 H 4.4-10.8 10^3/uL Red Blood Count 4.66 4.0-5.20 10^6/uL Hemoglobin 14.0 12.2-16.2 g/dL Hematocrit 41.2 36.0-46.0 % Mean Corpuscular Volume 88.6 80.0-100.0 fL Mean Corpuscular Hemoglobin 30.2 28.0-32.0 pg Mean Corpuscular Hemoglobin Concent 34.1 32.0-36.0 g/dL Red Cell Distribution Width 12.5 11.8-14.3 % Platelet Count 215 140-450 10^3/uL Mean Platelet Volume 8.5 6.9-10.8 fL Neutrophils (%) (Auto) 92.0 H 37.0-80.0 % Lymphocytes (%) (Auto) 6.5 L 10.0-50.0 % Monocytes (%) (Auto) 1.4 0.0-12.0 % Eosinophils (%) (Auto) 0.0 0.0-7.0 % Basophils (%) (Auto) 0.1 0.0-2.0 % Neutrophils # (Auto) 10.3 H 1.6-8.6 10 ^3/uL Lymphocytes # (Auto) 0.7 0.4-5.4 10 ^3/uL Monocytes # (Auto) 0.2 0-1.3 10 ^3/uL Eosinophils # (Auto) 0 0-0.8 10 ^3/uL Basophils # (Auto) 0 0-0.2 10 ^3/uL Nucleated Red Blood Cells 0.0 % Sodium Level 139 136-145 mmol/L Potassium Level 3.3 L 3.5-5.1 mmol/L Chloride Level 98 98-107 mmol/L Carbon Dioxide Level 29 20-31 mmol/L Anion Gap 12 5-15 Blood Urea Nitrogen 19 9-23 mg/dL Creatinine 1.29 H 0.550-1.02 mg/dL Glomerular Filtration Rate Calc 41 >90 mL/min BUN/Creatinine Ratio 14.7 10.0-20.0 Serum Glucose 294 H 74-106 mg/dL Calcium Level 8.7 8.7-10.4 mg/dL Total Bilirubin 0.6 0.2-1.0 mg/dL Aspartate Amino Transferase (AST) 23 13-40 U/L Alanine Aminotransferase (ALT) 12 7-40 U/L Alkaline Phosphatase 60 46-116 U/L Total Protein 7.0 5.7-8.2 g/dL Albumin 4.2 3.2-4.8 g/dL Urine Color Colorless Yellow Urine Clarity Clear Clear Urine pH 5.5 5.0-9.0 Urine Specific [place] 1.020 1.001-1.035 Urine Protein Negative Negative Urine Ketones Negative Negative Urine Blood Trace H Negative /uL Urine Nitrite Negative Negative Urine Bilirubin Negative Negative Urine Urobilinogen Normal Negative mg/dL Urine Leukocyte Esterase 3+ Negative /uL Urine RBC 5 0 - 4 /hpf Urine Microscopic WBC 14 H 0-5 /HPF Urine Squamous Epithelial Cells Few <5 /hpf Urine Bacteria None seen None Seen /hpf Urine Glucose Normal Normal mg/dL Prothrombin Time 10.4 9.3-11.8 sec Prothrombin Time INR 0.98 0.9-1.15 Activated Partial Thromboplast Time 31.3 24.5-34.5 SEC Troponin I High Sensitivity 4 </=34 ng/L Test 03/10/25 19:21 Range/Units Creatine Kinase 165 H 34-145 U/L B-Type Natriuretic Peptide 42.19 0-100 pg/mL Assessment Bilateral pulmonary emboli without RV strain Pneumonia Asthma Thyroid disease Fibromyalgia Morbid obesity Plan/Recommendation We will continue with the following plan/recommendations (Dr. Landers): Case discussed with . Transthoracic echocardiogram reveals an EF of 60%, RVSP 20 mmHg with no RV strain present. CT Angiography revealed multiple bilateral segmental/subsegmental pulmonary emboli with no significant right heart strain. Left lower lobe consolidation was also noted. Pulmonary embolism severity index (PESI) score: 85 points (Class II, low-risk, 30-day mortality in this group). The patient remains on 2 L nasal cannula. The patient shows no signs of hemodynamic instability. No indication for thrombectomy indicated at this time. The patient has been initiated on therapeutic Lovenox. We will recommend to continue therapeutic Lovenox and transition to DOAC therapy prior to discharge (apixaban 10 mg p.o. b.i.d. twice daily for the first seven days, then 5 mg p.o. twice daily for at least six months). There is no further inpatient cardiac workup indicated at this time. Kindly reconsult if needed. Thank you for allowing us to care for this patient. Please call with any questions or concerns. Critical care time spent: 44 minutes This medical document was created using an electronic medical record system with voice recognition software and computerized dictation system. Although this document has been carefully reviewed, there might still be some phonetic and typographical errors. Occasional wrong-word or ``sound-alike substitutions may have occurred due to the inherent limitations of voice recognition software. These areas are purely typographical due to imperfections of the software programs and do not reflect any compromise in the patient's medical care. Please read the chart carefully and recognize, using context, where these substitutions have occurred. Plan discussed with: Patient NYHA Physical activity limitations: NA Date of Service: Mar 11, 2025 Billing Provider: SHAYY PHILIPPE Cardiology Common Codes: [id number] INP/OBS CARE (High) Cardiology Consultation Codes: [id number] CONSULT <45MIN SHAYY PHILIPPE Mar 11, 2025 15:38
--- NOTE | 2025-03-11 17:41 | DVHSR ---
APPROVED REPORT EXAM: Two-dimensional echocardiogram with [employer]. Blood Pressure: 120/74 mmHg INDICATION PE RISK FACTORS Obesity: Height: 5'2, Weight: 199 DIMENSIONS LVDd3.6 (3.8-5.7cm)LA (2D)3.5 (1.9-4.0cm)Aortic Root2.9 (2.0-3.7cm) LVDs2.6 (2.5-4.0cm)LA (MM) (1.9-4.0cm)Aortic Cusp Exc1.5 (1.5-2.0cm) EF (%) 55.0 (55-70%)Rt. Atrium3.3 (1.9-4.0cm)Asc. Aorta cm IVSd1.0 (0.7-1.1cm)RV (D)3.5 (1.8-2.4cm) PWd0.9 (0.7-1.1cm) Mitral Valve MitralMitral Stenosis E wave1.01m/sMV Mean GR.4mmHg A wave1.05m/sMV Peak GR.101mmHg E/A ratio1.02D MVAcm2 DECEL [id number] 1/2 [place] Aortic Valve Aortic ValveAortic Stenosis V11.13m/Ponce Mean GR.4mmHg V21.25m/[place]once Peak GR.6mmHg LVOT Diameter2.0 (1.8-2.4cm)Doppler AVA2.84cm2 Pulmonic Valve V20.93m/s Tricuspid Valve TR Velocity1.64m/s [id number] Conclusion Technically good study sinus rhythm. Left atrial enlargement with concentric LVH. Mild dilation of the sinuses of Valsalva. Mild dilatio n of the pulmonary artery. Valves appear to be structurally normal. EF of 60% with normal RV function. No RV strain present. Doppler reveals mild tricuspid regurgitation with a right ventricular systolic pressure of 20 mmHg. No pericardial effusion masses or vegetations discernible.
[2025-03-11 17:44] LABS: COVID19 ANTIGEN SOFIA FIA NEGATIVE (NEGATIVE)
--- NOTE | 2025-03-11 21:04 | DVHINCON2 ---
Date of service: Mar 11, [address] Tamez Reason for Consultation Acute hypoxic respiratory failure and pleural effusion History of Present Illness This is an 84-year-old woman with past medical history of asthma, thyroid disease, fibromyalgia, peripheral neuropathy, and obesity. who presented to ED on 03/10/25 with chief complaint of shortness of breath and mechanical fall. The patient reports she has been having shortness of breath for approximately one year. Patient presented to the hospital after she sustained a fall at home. She denies losing consciousness or hitting her head. Workup revealed bilateral pulmonary emboli. A twelve lead electrocardiogram was ordered at time of assessment and reveals normal sinus rhythm with first-degree conduction delay, prolonged QTc interval and without any significant ST segment changes. She denies any chest pain, palpitations, or lightheadedness. Troponin levels have been negative. Patient was admitted for further care. Pulmonary consultation is requested for evaluation and management of acute hypoxic respiratory failure and pleural effusion. Review of Systems: 14-point review of systems negative unless otherwise noted above. Past Medical History: Asthma, thyroid disease, fibromyalgia, peripheral neuropathy, and obesity Past Surgical History: Total hysterectomy Medications: Reviewed. Allergies: Acetaminophen, hydrocodone, Penicillin G, Codeine Family History: No family history of premature CAD. No family history of lung disorders. Social History: Nonsmoker. No alcohol or illicit drug use. Allergies: Coded Allergies: Acetaminophen (Unverified Allergy, Severe, NAUSEA, 06/24/11) Hydrocodone (Unverified Allergy, Severe, NAUSEA, 06/24/11) Penicillin G (Unverified Allergy, Severe, 06/24/11) Codeine (Unverified Adverse Reaction, Severe, NAUSEA, 06/24/11) Home Meds Active Scripts Apixaban Base (ELIQUIS) 5 Mg Tab, 10 MG PO BID for 7 Days, #14 TAB 10MG BID X 7 DAYS THEN 5MG PO BID FOR AT LEAST 6 MONTHS FOR DVT/PE TREATMENT Prov:MILY TAMEZ MD 03/15/25 Apixaban Base (ELIQUIS) 5 Mg Tab, 5 MG PO BID, #180 TAB Prov:MILY TAMEZ MD 03/15/25 Azithromycin (Azithromycin) 500 Mg Tab, 1 TAB PO DAILY, #7 TAB Prov:MILY TAMEZ MD 03/15/25 Reported Medications Levothyroxine Sodium (Synthroid) 25 Mcg Tab 06/24/11 Omeprazole (Prilosec Susp (For Gt)) 20 Mg Ss 06/24/11 Gabapentin (Gabapentin) 100 Mg Cap 06/24/11 Current Medications Current Medications Medications (Trade) Dose Ordered Sig/Chantal Route PRN Reason Start Time Stop Time Status Last Admin Enoxaparin Sodium (Lovenox) 80 mg Q12HR SC 03/11/25 10:00 03/11/25 14:31 DC 03/11/25 11:45 Levothyroxine Sodium (Synthroid Tablet) 50 mcg QAM@0600 PO 03/11/25 06:00 03/11/25 06:01 Hydrochlorothiazide (hydroCHLOROthiazide TABLET) 25 mg DAILY PO 03/11/25 10:00 03/11/25 11:45 Gabapentin (Neurontin Capsule) 400 mg BID PO 03/11/25 10:00 Albuterol (Ventolin Medneb) 2.5 mg Q6HPRN PRN NEB SHORTNESS OF BREATH 03/11/25 00:00 Azithromycin 250 ml @ 125 mls/hr DAILY IV 03/12/25 10:00 Ondansetron HCl (Zofran) 4 mg Q4HP PRN IV NAUSEA / VOMITING 03/11/25 00:00 Morphine Sulfate 2 mg Q6HPRN PRN IV SEVERE PAIN (7-10 PAIN SCALE) 03/11/25 00:00 03/11/25 13:19 DC Nitroglycerin (Ntrostat Sublingual) 0.4 mg Q5MINP PRN SL FOR CHEST PAIN 03/11/25 00:00 Morphine Sulfate 2 mg Q30M PRN IV FOR CHEST PAIN 03/11/25 00:00 Ceftriaxone Sodium 50 ml @ 100 mls/hr DAILY@09 IV 03/12/25 09:00 Morphine Sulfate 2 mg Q6HPRN PRN IV SEVERE PAIN (7-10 PAIN SCALE) 03/11/25 13:30 Enoxaparin Sodium (Lovenox) 90 mg Q12HR SC 03/11/25 22:00 Vital Signs Vital Signs Date Time Temp Pulse Resp B/P (MAP) Pulse Ox O2 Delivery O2 Flow Rate FiO2 03/11/25 17:21 97.9 68 17 134/74 (94) 96 97.9 03/11/25 09:10 Nasal Cannula* 2 28 Physical Exam Gen.: Patient lying in bed in no apparent distress. On supplemental oxygen. Head: Normocephalic, atraumatic. Eyes: EOMI/PERRLA. Ears: Normal hearing. Normal anatomy. Neck/trachea: Trachea midline, supple. Nose: Normal external anatomy. Mouth: Moist mucous membranes. Chest: Decreased air entry bilaterally. No wheezing or rhonchi. Cardiovascular: Positive S1, positive S2. Regular rate and rhythm. Abdomen: Positive bowel sounds in all 4 quadrants. Soft, non-tender, non- distended. : Deferred. Rectal: Deferred. Skin: Warm, dry. Intact. Extremities: 2+ radial pulses bilaterally. No lower extremity edema. Neuro: Awake, alert, oriented x3. No gross motor or sensory deficits. Cranial nerves II through XII intact. Gait not assessed. Labs/Diagnostic Data Labs Test 03/11/25 16:30 03/11/25 09:20 03/11/25 02:51 03/11/25 00:06 Range/Units SARS-CoV-2 Antigen (Rapid) Negative NEGATIVE White Blood Count 11.2 H 4.4-10.8 10^3/uL Red Blood Count 4.66 4.0-5.20 10^6/uL Hemoglobin 14.0 12.2-16.2 g/dL Hematocrit 41.2 36.0-46.0 % Mean Corpuscular Volume 88.6 80.0-100.0 fL Mean Corpuscular Hemoglobin 30.2 28.0-32.0 pg Mean Corpuscular Hemoglobin Concent 34.1 32.0-36.0 g/dL Red Cell Distribution Width 12.5 11.8-14.3 % Platelet Count 215 140-450 10^3/uL Mean Platelet Volume 8.5 6.9-10.8 fL Neutrophils (%) (Auto) 92.0 H 37.0-80.0 % Lymphocytes (%) (Auto) 6.5 L 10.0-50.0 % Monocytes (%) (Auto) 1.4 0.0-12.0 % Eosinophils (%) (Auto) 0.0 0.0-7.0 % Basophils (%) (Auto) 0.1 0.0-2.0 % Neutrophils # (Auto) 10.3 H 1.6-8.6 10 ^3/uL Lymphocytes # (Auto) 0.7 0.4-5.4 10 ^3/uL Monocytes # (Auto) 0.2 0-1.3 10 ^3/uL Eosinophils # (Auto) 0 0-0.8 10 ^3/uL Basophils # (Auto) 0 0-0.2 10 ^3/uL Nucleated Red Blood Cells 0.0 % Sodium Level 139 136-145 mmol/L Potassium Level 3.3 L 3.5-5.1 mmol/L Chloride Level 98 98-107 mmol/L Carbon Dioxide Level 29 20-31 mmol/L Anion Gap 12 5-15 Blood Urea Nitrogen 19 9-23 mg/dL Creatinine 1.29 H 0.550-1.02 mg/dL Glomerular Filtration Rate Calc 41 >90 mL/min BUN/Creatinine Ratio 14.7 10.0-20.0 Serum Glucose 294 H 74-106 mg/dL Calcium Level 8.7 8.7-10.4 mg/dL Total Bilirubin 0.6 0.2-1.0 mg/dL Aspartate Amino Transferase (AST) 23 13-40 U/L Alanine Aminotransferase (ALT) 12 7-40 U/L Alkaline Phosphatase 60 46-116 U/L Total Protein 7.0 5.7-8.2 g/dL Albumin 4.2 3.2-4.8 g/dL Urine Color Colorless Yellow Urine Clarity Clear Clear Urine pH 5.5 5.0-9.0 Urine Specific [place] 1.020 1.001-1.035 Urine Protein Negative Negative Urine Ketones Negative Negative Urine Blood Trace H Negative /uL Urine Nitrite Negative Negative Urine Bilirubin Negative Negative Urine Urobilinogen Normal Negative mg/dL Urine Leukocyte Esterase 3+ Negative /uL Urine RBC 5 0 - 4 /hpf Urine Microscopic WBC 14 H 0-5 /HPF Urine Squamous Epithelial Cells Few <5 /hpf Urine Bacteria None seen None Seen /hpf Urine Glucose Normal Normal mg/dL Prothrombin Time 10.4 9.3-11.8 sec Prothrombin Time INR 0.98 0.9-1.15 Activated Partial Thromboplast Time 31.3 24.5-34.5 SEC Test 03/10/25 20:45 03/10/25 19:21 Range/Units Troponin I High Sensitivity 4 </=34 ng/L Creatine Kinase 165 H 34-145 U/L B-Type Natriuretic Peptide 42.19 0-100 pg/mL Assessment Impression: Acute hypoxic respiratory failure Dependence on supplemental oxygen Pulmonary emboli, multiple bilateral Pneumonia, likely GNR vs. GPC Pleural effusion, trace left Atelectasis Hypokalemia Obesity, BMI 32.5 Plan: Supplemental oxygen Titrate to keep O2 sats above 92%. Currently, on supplemental oxygen 2 LPM NC Taper O2 as tolerated. Antibiotic course d/t pneumonia Incentive spirometry for atelectasis Therapeutic Lovenox for PE - transition to Eliquis as tolerated. CT Angio reviewed, demonstrates: 1. Multiple bilateral segmental/subsegmental pulmonary emboli. 2. No significant right heart strain. 3. Left lower lobe consolidation may reflect mild pneumonia. 4. Trace left pleural effusion. CXR reviewed, demonstrates trace left pleural effusion causing compressive atelectasis Given Lasix for diuresis Monitor renal function. Monitor electrolytes. Supplement as necessary. Hypokalemia, supplemented Monitor ins and outs. Recommend diet and lifestyle modifications for weight reduction Obesity complicates all care DVT prophylaxis. Prognosis: Poor given patient's multiple co-morbidities. Rest of plan per hospitalist and other consultants. Thank you, , for allowing me to participate in this patient's care. Further recommendations will depend on the patient's clinical course. Please do not hesitate to contact me if you have any questions or concerns. This medical document was created using an electronic medical record system with [employer] dictation system. Although these documentations are being carefully reviewed, there may still be some phonetic and typographical changes. The errors are purely typographical, due to imperfection on the software program, and do not reflect any compromise in the patient's medical care. Plan discussed with: Patient, Other (RUBINA Patel/Dr Tamez) Visit Coding Pulmonary Billing Provider: MIRIAM VELEZ MD Date of Service if different f: Mar 11, 2025 Common Visit Codes: [id number] INP/OBS CARE (HIGH) MIRIAM VELEZ MD Mar 11, 2025 21:04
[2025-03-12] VITALS (9 sets, daily range): BP systolic 101–138; BP diastolic 59–72; PULSE 60–89; RESP 18–19; TEMP 97.4–97.8; O2SAT 93–99
--- NOTE | 2025-03-12 08:28 | DVHPN2 ---
Changes from previous H/P or p: No Changes Objective Vitals Vital Signs Date Time Temp Pulse Resp B/P (MAP) Pulse Ox O2 Delivery O2 Flow Rate FiO2 03/12/25 08:00 96 Nasal Cannula* 2 28 03/12/25 05:00 97.7 72 19 101/66 (78) 97.7 Intake/Output Intake and Output 03/12/25 07:00 Intake Total 2660 ml Balance 2660 ml Intake Oral 2660 ml # Voids 9 Medications Current Medications Medications Dose Ordered Sig/Chantal Route Start Time Stop Time Status Last Admin Dose Admin Levothyroxine Sodium 50 mcg QAM@0600 PO 03/11/25 06:00 03/12/25 06:00 50 MCG Hydrochlorothiazide 25 mg DAILY PO 03/11/25 10:00 03/11/25 11:45 25 MG Gabapentin 400 mg BID PO 03/11/25 10:00 Albuterol 2.5 mg Q6HPRN PRN NEB 03/11/25 00:00 Azithromycin 250 ml @ 125 mls/hr DAILY IV 03/12/25 10:00 Ondansetron HCl 4 mg Q4HP PRN IV 03/11/25 00:00 Nitroglycerin 0.4 mg Q5MINP PRN SL 03/11/25 00:00 Morphine Sulfate 2 mg Q30M PRN IV 03/11/25 00:00 Ceftriaxone Sodium 50 ml @ 100 mls/hr DAILY@09 IV 03/12/25 09:00 Morphine Sulfate 2 mg Q6HPRN PRN IV 03/11/25 13:30 Enoxaparin Sodium 90 mg Q12HR SC 03/11/25 22:00 03/11/25 21:25 90 MG Laboratory Results Laboratory Tests 03/11/25 09:20 Chemistry Test 03/11/25 09:20 Albumin 4.2 g/dL (3.2-4.8) Calcium Level 8.7 mg/dL (8.7-10.4) Total Protein 7.0 g/dL (5.7-8.2) LFT Test 03/11/25 09:20 Alanine Aminotransferase (ALT) 12 U/L (7-40) Alkaline Phosphatase 60 U/L (46-116) Aspartate Amino Transferase (AST) 23 U/L (13-40) Total Bilirubin 0.6 mg/dL (0.2-1.0) Urinalysis Test 03/11/25 02:51 Urine Color Colorless (Yellow) Urine Clarity Clear (Clear) Urine pH 5.5 (5.0-9.0) Urine Specific [place] 1.020 (1.001-1.035) Urine Protein Negative (Negative) Urine Ketones Negative (Negative) Urine Blood Trace /uL (Negative) H Urine Nitrite Negative (Negative) Urine Bilirubin Negative (Negative) Urine Urobilinogen Normal mg/dL (Negative) Urine Leukocyte Esterase 3+ /uL (Negative) Urine RBC 5 /hpf (0 - 4) Urine Microscopic WBC 14 /HPF (0-5) H Urine Squamous Epithelial Cells Few /hpf (<5) Urine Bacteria None seen /hpf (None Seen) Urine Glucose Normal mg/dL (Normal) Labs and/or images reviewed: Labs reviewed by me, Image(s) reviewed by me Assessment/Plan Assessment/Plan Acute hypoxic respiratory failure: Oxygen by nasal cannula Acute bilateral pulmonary emboli: Lovenox 1 milligram/kilos subQ b.i.d., pulmonary consult for Dr. Ames appreciated cardiology consult for Dr. Landers appreciated, echocardiogram 60 percent ejection fraction , no right ventricular strain Left lower lobe pneumonia: Rocephin azithromycin Acute asthma exacerbation: Med neb Hypothyroidism: Synthroid Lorrie test negative Morbid obesity Fibromyalgia RN Amanda at bedside Time spent 56 minutes Advanced care planning time 20 minutes Patient is full code Plan discussed with: Patient My Orders Orders - MILY TAMEZ MD Procedure Category Date Status Time Ceftriaxone 1gm/50ml PHA 03/12/25 In Process (Rocephin) 09:00 Rapid Influenza A&B LAB 03/11/25 Logged 12:50 * Cardiology Consult CONS 03/11/25 Transmitted 12:59 Date of Service: Mar 12, 2025 Billing Provider: MILY TAMEZ MD Common Visit Codes: [id number] INP/OBS CARE(HIGH) MILY TAMEZ MD Mar 12, 2025 08:28
[2025-03-12] MEDS: AZITHROMYCIN 500MG/ 250ML 250 ML IV SCH (11:21)
--- NOTE | 2025-03-12 20:39 | DVHPN2 ---
Subjective DOS: 03/12/2025 Patient seen and examined at bedside. Remains on supplemental oxygen Overnight events reviewed. Changes from previous H/P or p: No Changes Objective Vitals Vital Signs Date Time Temp Pulse Resp B/P (MAP) Pulse Ox O2 Delivery O2 Flow Rate FiO2 03/12/25 20:00 77 18 95 Nasal Cannula* 2 28 03/12/25 17:00 97.8 126/69 (88) 97.8 Intake/Output Intake and Output 03/12/25 07:00 Intake Total 2660 ml Balance 2660 ml Intake Oral 2660 ml # Voids 9 Exam Gen.: Patient lying in bed in no apparent distress. On supplemental oxygen. Head: Normocephalic, atraumatic. Eyes: EOMI/PERRLA. Ears: Normal hearing. Normal anatomy. Neck/trachea: Trachea midline, supple. Nose: Normal external anatomy. Mouth: Moist mucous membranes. Chest: Decreased air entry bilaterally. No wheezing or rhonchi. Cardiovascular: Positive S1, positive S2. Regular rate and rhythm. Abdomen: Positive bowel sounds in all 4 quadrants. Soft, non-tender, non- distended. : Deferred. Rectal: Deferred. Skin: Warm, dry. Intact. Extremities: 2+ radial pulses bilaterally. No lower extremity edema. Neuro: Awake, alert, oriented x3. No gross motor or sensory deficits. Cranial nerves II through XII intact. Gait not assessed. Medications Current Medications Medications Dose Ordered Sig/Chantal Route Start Time Stop Time Status Last Admin Dose Admin Levothyroxine Sodium 50 mcg QAM@0600 PO 03/11/25 06:00 03/12/25 06:00 50 MCG Hydrochlorothiazide 25 mg DAILY PO 03/11/25 10:00 03/12/25 10:14 25 MG Gabapentin 400 mg BID PO 03/11/25 10:00 Albuterol 2.5 mg Q6HPRN PRN NEB 03/11/25 00:00 Azithromycin 250 ml @ 125 mls/hr DAILY IV 03/12/25 10:00 03/12/25 11:21 125 MLS/HR Ondansetron HCl 4 mg Q4HP PRN IV 03/11/25 00:00 Nitroglycerin 0.4 mg Q5MINP PRN SL 03/11/25 00:00 Morphine Sulfate 2 mg Q30M PRN IV 03/11/25 00:00 Ceftriaxone Sodium 50 ml @ 100 mls/hr DAILY@09 IV 03/12/25 09:00 03/12/25 10:11 100 MLS/HR Morphine Sulfate 2 mg Q6HPRN PRN IV 03/11/25 13:30 Enoxaparin Sodium 90 mg Q12HR SC 03/11/25 22:00 03/12/25 10:11 90 MG Laboratory Results Laboratory Tests 03/11/25 09:20 Urinalysis Test 03/11/25 02:51 Urine Color Colorless (Yellow) Urine Clarity Clear (Clear) Urine pH 5.5 (5.0-9.0) Urine Specific [place] 1.020 (1.001-1.035) Urine Protein Negative (Negative) Urine Ketones Negative (Negative) Urine Blood Trace /uL (Negative) H Urine Nitrite Negative (Negative) Urine Bilirubin Negative (Negative) Urine Urobilinogen Normal mg/dL (Negative) Urine Leukocyte Esterase 3+ /uL (Negative) Urine RBC 5 /hpf (0 - 4) Urine Microscopic WBC 14 /HPF (0-5) H Urine Squamous Epithelial Cells Few /hpf (<5) Urine Bacteria None seen /hpf (None Seen) Urine Glucose Normal mg/dL (Normal) Assessment/Plan Assessment/Plan Impression: Acute hypoxic respiratory failure Dependence on supplemental oxygen Pulmonary emboli, multiple bilateral Pneumonia, likely GNR vs. GPC Pleural effusion, trace left Atelectasis Hypokalemia Obesity, BMI 32.5 Events: Remains on supplemental oxygen, 2 LPM NC Taper O2 as tolerated No overnight events. Complete antibiotic course Incentive spirometry Continue anticoagulation Labs and imaging reviewed. Rest of plan as noted below. Plan: Supplemental oxygen Titrate to keep O2 sats above 92%. Antibiotic course d/t pneumonia Incentive spirometry for atelectasis On Levothyroxine Therapeutic Lovenox for PE - transition to Eliquis as tolerated. CT Angio reviewed, demonstrates: 1. Multiple bilateral segmental/subsegmental pulmonary emboli. 2. No significant right heart strain. 3. Left lower lobe consolidation may reflect mild pneumonia. 4. Trace left pleural effusion. CXR demonstrates trace left pleural effusion causing compressive atelectasis Maintain euvolemia Monitor renal function. Monitor electrolytes. Supplement as necessary. Monitor ins and outs. Recommend diet and lifestyle modifications for weight reduction Obesity complicates all care DVT prophylaxis. Prognosis: Poor given patient's multiple co-morbidities. Rest of plan per hospitalist and other consultants. Thank you, , for allowing me to participate in this patient's care. Further recommendations will depend on the patient's clinical course. Please do not hesitate to contact me if you have any questions or concerns. This medical document was created using an electronic medical record system with [employer] dictation system. Although these documentations are being carefully reviewed, there may still be some phonetic and typographical changes. The errors are purely typographical, due to imperfection on the software program, and do not reflect any compromise in the patient's medical care. Plan discussed with: Patient, Other (RN Amanda) Visit Coding Pulmonary Billing Provider: MIRIAM VELEZ MD Date of Service if different f: Mar 12, 2025 Common Visit Codes: [id number] INP/OBS CARE(HIGH) MIRIAM VELEZ MD Mar 12, 2025 20:39
[2025-03-13] VITALS (12 sets, daily range): BP systolic 110–140; BP diastolic 57–75; PULSE 60–73; RESP 17–18; TEMP 97–97.9; O2SAT 94–98
--- NOTE | 2025-03-13 08:30 | DVHPN2 ---
Reviewed: Care Plan, H&P, Labs, Medications, Previous Orders, Radiology Changes from previous H/P or p: No Changes Objective Vitals Vital Signs Date Time Temp Pulse Resp B/P (MAP) Pulse Ox O2 Delivery O2 Flow Rate FiO2 03/13/25 05:00 97.2 60 18 110/57 (74) 96 97.2 03/12/25 22:32 Nasal Cannula 2.0 03/12/25 22:32 28 Intake/Output Intake and Output 03/13/25 07:00 Intake Total 2340 ml Balance 2340 ml Intake Oral 2040 ml IV Total 300 ml # Voids 8 # Bowel Movements 1 Medications Current Medications Medications Dose Ordered Sig/Chantal Route Start Time Stop Time Status Last Admin Dose Admin Levothyroxine Sodium 50 mcg QAM@0600 PO 03/11/25 06:00 03/13/25 05:59 50 MCG Hydrochlorothiazide 25 mg DAILY PO 03/11/25 10:00 03/12/25 10:14 25 MG Gabapentin 400 mg BID PO 03/11/25 10:00 03/12/25 21:26 400 MG Albuterol 2.5 mg Q6HPRN PRN NEB 03/11/25 00:00 Azithromycin 250 ml @ 125 mls/hr DAILY IV 03/12/25 10:00 03/12/25 11:21 125 MLS/HR Ondansetron HCl 4 mg Q4HP PRN IV 03/11/25 00:00 Nitroglycerin 0.4 mg Q5MINP PRN SL 03/11/25 00:00 Morphine Sulfate 2 mg Q30M PRN IV 03/11/25 00:00 Ceftriaxone Sodium 50 ml @ 100 mls/hr DAILY@09 IV 03/12/25 09:00 03/12/25 10:11 100 MLS/HR Morphine Sulfate 2 mg Q6HPRN PRN IV 03/11/25 13:30 Enoxaparin Sodium 90 mg Q12HR SC 03/11/25 22:00 03/12/25 21:27 90 MG Laboratory Results Laboratory Tests 03/11/25 09:20 Urinalysis Test 03/11/25 02:51 Urine Color Colorless (Yellow) Urine Clarity Clear (Clear) Urine pH 5.5 (5.0-9.0) Urine Specific [place] 1.020 (1.001-1.035) Urine Protein Negative (Negative) Urine Ketones Negative (Negative) Urine Blood Trace /uL (Negative) H Urine Nitrite Negative (Negative) Urine Bilirubin Negative (Negative) Urine Urobilinogen Normal mg/dL (Negative) Urine Leukocyte Esterase 3+ /uL (Negative) Urine RBC 5 /hpf (0 - 4) Urine Microscopic WBC 14 /HPF (0-5) H Urine Squamous Epithelial Cells Few /hpf (<5) Urine Bacteria None seen /hpf (None Seen) Urine Glucose Normal mg/dL (Normal) Labs and/or images reviewed: Labs reviewed by me, Image(s) reviewed by me Assessment/Plan Assessment/Plan Acute hypoxic respiratory failure: Oxygen by nasal cannula Acute bilateral pulmonary emboli: Lovenox 1 milligram/kilos subQ b.i.d., pulmonary consult for Dr. Ames appreciated cardiology consult for Dr. Landers appreciated, echocardiogram 60 percent ejection fraction , no right ventricular strain Left lower lobe pneumonia: Rocephin azithromycin Acute asthma exacerbation: Med neb Hypothyroidism: Synthroid Lorrie test negative Morbid obesity Fibromyalgia Neuropathy: Gabapentin 400 mg PO TID RUBINA Patel at bedside Time spent 56 minutes Advanced care planning time 20 minutes Patient is full code Plan discussed with: Patient My Orders Orders - MILY TAMEZ MD Procedure Category Date Status Time Electrocardigram EKG 03/13/25 Logged 02:05 Date of Service: Mar 13, 2025 Billing Provider: MILY TAMEZ MD Common Visit Codes: [id number] INP/OBS CARE(HIGH) MILY TAMEZ MD Mar 13, 2025 08:30
[2025-03-13] MEDS ORDERED: GABAPENTIN 300 MG CAP PO SCH (10:00)
[2025-03-13] MEDS ORDERED: GABAPENTIN 300 MG CAP PO ONE (11:30)
[2025-03-13] MEDS: GABAPENTIN 400 MG CAP PO ONE (12:00)
--- NOTE | 2025-03-13 12:35 | ECG ---
[facility] Test Date: 2025-03-11 Test Time: 14:38:03 Pat Name: TINO VILLANUEVA Department: Respiratoy Room: 0204T A Gender: F [employer] Clerk: alf : 1940 Requested By: MILY TAMEZ Order Number: [id number] Reading MD: Carlos Manuel Landers Measurements Intervals [place] Rate: 70 P: -12 SC: 226 QRS: 58 QRSD: 95 T: 59 QT: 470 QTc: 508 Interpretive Statements Sinus rhythm Prolonged SC interval Low voltage, precordial leads Nonspecific T abnormalities, anterior leads Prolonged QT interval Electronically Signed On 03-13-2025 20:00:31 PDT by Carlos Manuel Landers Please click the below link to view image of tracing.
--- NOTE | 2025-03-13 16:22 | DVHPN2 ---
Progress Note - Dictate Date Seen: Mar 13, 2025 Has the PT tested + for MRSA If YES, has PT been informed?: No Medical Necessity Reason Pt with a Central, PICC or Fol: No vital signs Vital Sign Date Time Temp Pulse Resp B/P (MAP) Pulse Ox O2 Delivery O2 Flow Rate FiO2 03/13/25 13:27 67 03/13/25 13:00 97.5 17 140/75 (96) 97 97.5 03/13/25 08:55 Nasal Cannula* 2 28 Total Intake and Output 03/12/25 03/12/25 03/13/25 15:00 23:00 07:00 Intake Total 990 ml 550 ml 800 ml Balance 990 ml 550 ml 800 ml medications Current Medications Medications Dose Ordered Sig/Chantal Route Start Time Stop Time Status Last Admin Dose Admin Levothyroxine Sodium 50 mcg QAM@0600 PO 03/11/25 06:00 03/13/25 05:59 50 MCG Hydrochlorothiazide 25 mg DAILY PO 03/11/25 10:00 03/13/25 11:20 25 MG Albuterol 2.5 mg Q6HPRN PRN NEB 03/11/25 00:00 Azithromycin 250 ml @ 125 mls/hr DAILY IV 03/12/25 10:00 03/13/25 13:45 125 MLS/HR Ondansetron HCl 4 mg Q4HP PRN IV 03/11/25 00:00 Nitroglycerin 0.4 mg Q5MINP PRN SL 03/11/25 00:00 Morphine Sulfate 2 mg Q30M PRN IV 03/11/25 00:00 Ceftriaxone Sodium 50 ml @ 100 mls/hr DAILY@09 IV 03/12/25 09:00 03/13/25 11:21 100 MLS/HR Morphine Sulfate 2 mg Q6HPRN PRN IV 03/11/25 13:30 Enoxaparin Sodium 90 mg Q12HR SC 03/11/25 22:00 03/13/25 11:20 90 MG Gabapentin 400 mg TID PO 03/13/25 22:00 laboratory and microbiology Laboratory Tests 03/11/25 09:20 Test 03/11/25 09:20 Range/Units Serum Glucose 294 H 74-106 mg/dL Assessment/Plan Acute hypoxic respiratory failure Dependence on supplemental oxygen Pulmonary emboli, multiple bilateral Pneumonia, likely GNR vs. GPC Pleural effusion, trace left Atelectasis Hypokalemia Obesity, BMI 32.5 Events: Remains on supplemental oxygen, 2 LPM NC Taper O2 as tolerated able to ambulate Plan: Supplemental oxygen Titrate to keep O2 sats above 92%. Antibiotic course d/t pneumonia Incentive spirometry for atelectasis On Levothyroxine Therapeutic Lovenox for PE - transition to Eliquis as tolerated. dc per primary Plan discussed with: Other (rn) ABHI ERIC MD Mar 13, 2025 16:22
[2025-03-13] MEDS: GABAPENTIN 400 MG CAP PO SCH (22:00)
[2025-03-14] VITALS (10 sets, daily range): BP systolic 115–142; BP diastolic 55–76; PULSE 56–74; RESP 12–18; TEMP 96.6–97.9; O2SAT 95–98
--- NOTE | 2025-03-14 09:17 | DVHPN2 ---
Reviewed: Care Plan, H&P, Labs, Medications, Previous Orders, Radiology Changes from previous H/P or p: No Changes Objective Vitals Vital Signs Date Time Temp Pulse Resp B/P (MAP) Pulse Ox O2 Delivery O2 Flow Rate FiO2 03/14/25 09:11 123/76 03/14/25 08:31 97.8 56 16 98 97.8 03/14/25 07:19 Nasal Cannula 2.0 03/14/25 07:19 28 Intake/Output Intake and Output 03/14/25 06:59 Intake Total 2920 ml Balance 2920 ml Intake Oral 2920 ml # Voids 13 # Bowel Movements 2 Medications Current Medications Medications Dose Ordered Sig/Chantal Route Start Time Stop Time Status Last Admin Dose Admin Levothyroxine Sodium 50 mcg QAM@0600 PO 03/11/25 06:00 03/14/25 05:33 50 MCG Hydrochlorothiazide 25 mg DAILY PO 03/11/25 10:00 03/14/25 09:11 25 MG Albuterol 2.5 mg Q6HPRN PRN NEB 03/11/25 00:00 Azithromycin 250 ml @ 125 mls/hr DAILY IV 03/12/25 10:00 03/13/25 13:45 125 MLS/HR Ondansetron HCl 4 mg Q4HP PRN IV 03/11/25 00:00 Nitroglycerin 0.4 mg Q5MINP PRN SL 03/11/25 00:00 Morphine Sulfate 2 mg Q30M PRN IV 03/11/25 00:00 Ceftriaxone Sodium 50 ml @ 100 mls/hr DAILY@09 IV 03/12/25 09:00 03/14/25 08:34 100 MLS/HR Morphine Sulfate 2 mg Q6HPRN PRN IV 03/11/25 13:30 Enoxaparin Sodium 90 mg Q12HR SC 03/11/25 22:00 03/14/25 09:12 90 MG Gabapentin 400 mg TID PO 03/13/25 22:00 03/14/25 05:33 400 MG Laboratory Results Laboratory Tests 03/11/25 09:20 Urinalysis Test 03/11/25 02:51 Urine Color Colorless (Yellow) Urine Clarity Clear (Clear) Urine pH 5.5 (5.0-9.0) Urine Specific [place] 1.020 (1.001-1.035) Urine Protein Negative (Negative) Urine Ketones Negative (Negative) Urine Blood Trace /uL (Negative) H Urine Nitrite Negative (Negative) Urine Bilirubin Negative (Negative) Urine Urobilinogen Normal mg/dL (Negative) Urine Leukocyte Esterase 3+ /uL (Negative) Urine RBC 5 /hpf (0 - 4) Urine Microscopic WBC 14 /HPF (0-5) H Urine Squamous Epithelial Cells Few /hpf (<5) Urine Bacteria None seen /hpf (None Seen) Urine Glucose Normal mg/dL (Normal) Labs and/or images reviewed: Labs reviewed by me, Image(s) reviewed by me Assessment/Plan Assessment/Plan Acute hypoxic respiratory failure: Oxygen by nasal cannula Acute bilateral pulmonary emboli: Lovenox transitioned to Eliquis, pulmonary consult for Dr. Ames appreciated cardiology consult for Dr. Landers appreciated, echocardiogram 60 percent ejection fraction , no right ventricular strain Left lower lobe pneumonia: Rocephin azithromycin Acute asthma exacerbation: Med neb Hypothyroidism: Synthroid Lorrie test negative Morbid obesity Fibromyalgia Neuropathy: Gabapentin 400 mg PO TID RUBINA Patel at bedside Time spent 56 minutes Patient is full code Plan discussed with: Patient My Orders Orders - MILY TAMEZ MD Procedure Category Date Status Time Gabapentin Capsule PHA 03/13/25 In Process (Neurontin Capsule) 22:00 (Nf) Eliquis PHA 03/14/25 Verified 10:00 Date of Service: Mar 14, 2025 Billing Provider: MILY TAMEZ MD Common Visit Codes: [id number] INP/OBS CARE(HIGH) MILY TAMEZ MD Mar 14, 2025 09:17
[2025-03-14] MEDS: APIXABAN 5 MG TAB PO SCH ×2 (10:00→22:22)
--- NOTE | 2025-03-14 12:56 | DVHPN2 ---
Progress Note - Dictate Date Seen: Mar 14, 2025 Has the PT tested + for MRSA If YES, has PT been informed?: No Medical Necessity Reason Pt with a Central, PICC or Fol: No vital signs Vital Sign Date Time Temp Pulse Resp B/P (MAP) Pulse Ox O2 Delivery O2 Flow Rate FiO2 03/14/25 12:51 97.9 63 12 115/67 (83) 97 97.9 03/14/25 07:19 Nasal Cannula 2.0 03/14/25 07:19 28 Total Intake and Output 03/13/25 03/13/25 03/14/25 15:00 23:00 07:00 Intake Total 690 ml 1830 ml 400 ml Balance 690 ml 1830 ml 400 ml medications Current Medications Medications Dose Ordered Sig/Chantal Route Start Time Stop Time Status Last Admin Dose Admin Levothyroxine Sodium 50 mcg QAM@0600 PO 03/11/25 06:00 03/14/25 05:33 50 MCG Hydrochlorothiazide 25 mg DAILY PO 03/11/25 10:00 03/14/25 09:11 25 MG Albuterol 2.5 mg Q6HPRN PRN NEB 03/11/25 00:00 Cancel Azithromycin 250 ml @ 125 mls/hr DAILY IV 03/12/25 10:00 03/14/25 10:23 125 MLS/HR Ondansetron HCl 4 mg Q4HP PRN IV 03/11/25 00:00 Nitroglycerin 0.4 mg Q5MINP PRN SL 03/11/25 00:00 Morphine Sulfate 2 mg Q30M PRN IV 03/11/25 00:00 Ceftriaxone Sodium 50 ml @ 100 mls/hr DAILY@09 IV 03/12/25 09:00 03/14/25 08:34 100 MLS/HR Morphine Sulfate 2 mg Q6HPRN PRN IV 03/11/25 13:30 Gabapentin 400 mg TID PO 03/13/25 22:00 03/14/25 05:33 400 MG Apixaban 10 mg BID PO 03/14/25 10:00 03/20/25 22:01 laboratory and microbiology Laboratory Tests 03/11/25 09:20 Test 03/11/25 09:20 Range/Units Serum Glucose 294 H 74-106 mg/dL Assessment/Plan Acute hypoxic respiratory failure Dependence on supplemental oxygen Pulmonary emboli, multiple bilateral Pneumonia, likely GNR vs. GPC Pleural effusion, trace left Atelectasis Hypokalemia Obesity, BMI 32.5 Events: Remains on supplemental oxygen, 2 LPM NC Taper O2 as tolerated able to ambulate Plan: Supplemental oxygen Titrate to keep O2 sats above 92%. Antibiotic course d/t pneumonia Incentive spirometry for atelectasis On Levothyroxine Therapeutic Lovenox for PE - transition to Eliquis as tolerated. dc per primary Plan discussed with: Patient ABHI ERIC MD Mar 14, 2025 12:56
[2025-03-15 05:00] VITALS: BP 100/43; PULSE 66; RESP 18; TEMP 97.8; O2SAT 97
[2025-03-15 08:00] VITALS: PULSE 66
[2025-03-15 09:00] VITALS: BP 110/65; PULSE 68; RESP 18; TEMP 97.6; O2SAT 96
[2025-03-15] MEDS ORDERED: APIX5TAB PO (09:19)
[2025-03-15] MEDS ORDERED: AZIT500T66 PO (09:19)
--- NOTE | 2025-03-15 09:24 | DVHDS2 ---
Discharge Summary Date of Admission Mar 10, 2025 at 23:48 Date of Discharge: Mar 15, 2025 Admitting Diagnosis Shortness of breath Wounds: None Labs/Diagnostic Data: Laboratory Results Test 03/11/25 23:42 03/11/25 16:30 03/11/25 09:20 03/11/25 02:51 Influenza Type A Antigen Negative (Negative) Influenza Type B Antigen Negative (Negative) SARS-CoV-2 Antigen (Rapid) Negative (NEGATIVE) White Blood Count 11.2 10^3/uL (4.4-10.8) Red Blood Count 4.66 10^6/uL (4.0-5.20) Hemoglobin 14.0 g/dL (12.2-16.2) Hematocrit 41.2 % (36.0-46.0) Mean Corpuscular Volume 88.6 fL (80.0-100.0) Mean Corpuscular Hemoglobin 30.2 pg (28.0-32.0) Mean Corpuscular Hemoglobin Concent 34.1 g/dL (32.0-36.0) Red Cell Distribution Width 12.5 % (11.8-14.3) Platelet Count 215 10^3/uL (140-450) Mean Platelet Volume 8.5 fL (6.9-10.8) Neutrophils (%) (Auto) 92.0 % (37.0-80.0) Lymphocytes (%) (Auto) 6.5 % (10.0-50.0) Monocytes (%) (Auto) 1.4 % (0.0-12.0) Eosinophils (%) (Auto) 0.0 % (0.0-7.0) Basophils (%) (Auto) 0.1 % (0.0-2.0) Neutrophils # (Auto) 10.3 10 ^3/uL (1.6-8.6) Lymphocytes # (Auto) 0.7 10 ^3/uL (0.4-5.4) Monocytes # (Auto) 0.2 10 ^3/uL (0-1.3) Eosinophils # (Auto) 0 10 ^3/uL (0-0.8) Basophils # (Auto) 0 10 ^3/uL (0-0.2) Nucleated Red Blood Cells 0.0 % Sodium Level 139 mmol/L (136-145) Potassium Level 3.3 mmol/L (3.5-5.1) Chloride Level 98 mmol/L (98-107) Carbon Dioxide Level 29 mmol/L (20-31) Anion Gap 12 (5-15) Blood Urea Nitrogen 19 mg/dL (9-23) Creatinine 1.29 mg/dL (0.550-1.02) Glomerular Filtration Rate Calc 41 mL/min (>90) BUN/Creatinine Ratio 14.7 (10.0-20.0) Serum Glucose 294 mg/dL (74-106) Calcium Level 8.7 mg/dL (8.7-10.4) Total Bilirubin 0.6 mg/dL (0.2-1.0) Aspartate Amino Transferase (AST) 23 U/L (13-40) Alanine Aminotransferase (ALT) 12 U/L (7-40) Alkaline Phosphatase 60 U/L (46-116) Total Protein 7.0 g/dL (5.7-8.2) Albumin 4.2 g/dL (3.2-4.8) Urine Color Colorless (Yellow) Urine Clarity Clear (Clear) Urine pH 5.5 (5.0-9.0) Urine Specific [place] 1.020 (1.001-1.035) Urine Protein Negative (Negative) Urine Ketones Negative (Negative) Urine Blood Trace /uL (Negative) Urine Nitrite Negative (Negative) Urine Bilirubin Negative (Negative) Urine Urobilinogen Normal mg/dL (Negative) Urine Leukocyte Esterase 3+ /uL (Negative) Urine RBC 5 /hpf (0 - 4) Urine Microscopic WBC 14 /HPF (0-5) Urine Squamous Epithelial Cells Few /hpf (<5) Urine Bacteria None seen /hpf (None Seen) Urine Glucose Normal mg/dL (Normal) Test 03/11/25 00:06 03/10/25 20:45 03/10/25 19:21 Prothrombin Time 10.4 sec (9.3-11.8) Prothrombin Time INR 0.98 (0.9-1.15) Activated Partial Thromboplast Time 31.3 SEC (24.5-34.5) Troponin I High Sensitivity 4 ng/L (</=34) Creatine Kinase 165 U/L (34-145) B-Type Natriuretic Peptide 42.19 pg/mL (0-100) Other Laboratory Tests 03/11/25 09:20 Brief Hx & Hospital Course: 84-year-old female with a history of hypothyroidism fibromyalgia neuropathy came in for shortness of breaths found to have community-acquired pneumonia treated with Rocephin azithromycin also had bilateral pulmonary emboli treated with Lovenox transmitted to Eliquis echo 60 percent ejection fraction seen by cardiology Dr. Enriquez and pulmonology by Dr. Ames. At the time of discharge patient is on room air. Discharged home on Eliquis for PE and azithromycin for pneumonia. She will follow up with the primary Dr and Dr. Ames. She will also advised that she will be on Eliquis for at least six months for pulmonary embolism Consults/Reason for consult Pulmonology Dr. Ames Cardiology Dr. Landers Operations or Procedures CT chest with contrast Condition at Discharge: Fair Final Diagnosis/Problems List Acute hypoxic respiratory failure: Oxygen by nasal cannula Acute bilateral pulmonary emboli: Lovenox transitioned to Eliquis, pulmonary consult for Dr. Ames appreciated cardiology consult for Dr. Landers appreciated, echocardiogram 60 percent ejection fraction , no right ventricular strain Left lower lobe pneumonia: Rocephin azithromycin Acute asthma exacerbation: Med neb Hypothyroidism: Synthroid Lorrie test negative Morbid obesity Fibromyalgia Neuropathy: Gabapentin 400 mg PO TID Discharge Disposition: Home Discharge Instruct/Medications Diet: Cardiac 2g Na,low cholest Activity: Light activity Follow Up/Referral: Follow up with the primary Dr in one week Follow up with the pulmonology Dr. Ames in one week Fill the prescription today and start taking medications Medications: Eliquis 10 mg p.o. b.i.d. seven days, then 5 mg p.o. b.i.d. three months Azithromycin 500 mg p.o. daily 7. [facility] Scheduled Apixaban Base (Eliquis), 5 MG PO BID Apixaban Base (Eliquis), 10 MG PO BID Azithromycin (Azithromycin), 1 TAB PO DAILY Miscellaneous Medications Gabapentin (Gabapentin), (Reported) Levothyroxine Sodium (Synthroid), (Reported) Omeprazole (Prilosec Susp (For Gt)), (Reported) 39 (Time taken for discharge summary 39 minutes) Discharge Statement: "Patient was advised to return to the ER or call 911 if any headaches, dizziness, shortness of breath, chest pain, abdominal pain, bleeding, fevers, or worsening of medical condition. Patient was counseled about treatment plan, medications, possible side effects, patientverbalized understanding. All questions were answered to the best of my ability. This discharge took greater then 30 minutes in planning, reviewing documentation, counseling the patient, and discussing with other team members." ASSESSMENT ASSESSMENT Hospital Course Uneventful Assessment Acute hypoxic respiratory failure: Oxygen by nasal cannula Acute bilateral pulmonary emboli: Lovenox transitioned to Eliquis, pulmonary consult for Dr. Ames appreciated cardiology consult for Dr. Landers appreciated, echocardiogram 60 percent ejection fraction , no right ventricular strain Left lower lobe pneumonia: Rocephin azithromycin Acute asthma exacerbation: Med neb Hypothyroidism: Synthroid Lorrie test negative Morbid obesity Fibromyalgia Neuropathy: Gabapentin 400 mg PO TID Date of Service: Mar 15, 2025 Billing Provider: MILY TAMEZ MD Common Visit Codes: 25251-BDC/OBS DISCH DAY >30min MILY TAMEZ MD Mar 15, 2025 09:24
[2025-03-15 10:37] VITALS: BP 110/65; PULSE 68; RESP 18; TEMP 97.6
[2025-03-15 13:00] VITALS: BP 125/57; PULSE 65; RESP 18; TEMP 98; O2SAT 97
== END 2025-03-15 14:00 | disposition home or self-care (01) | DRG 177 ==
LOC: EDBD 18:42 → EDUNIT# 18:42 → ER 18:42 → OVERFLOW 23:48 → TELE-CENTR 23:53
PROVIDERS: ADMIT Family Medicine; ATTEND Family Medicine
DX: J15.69 Pneumonia due to other Gram-negative bacteria (principal); I26.94 Multiple subsegmental thrombotic pulmonary emboli without acute cor pulmonale; J96.01 Acute respiratory failure with hypoxia; N17.9 Acute kidney failure, unspecified; J45.901 Unspecified asthma with (acute) exacerbation; J98.11 Atelectasis; J90 Pleural effusion, not elsewhere classified; J18.9 Pneumonia, unspecified organism; J15.9 Unspecified bacterial pneumonia; Z20.822 Contact with and (suspected) exposure to COVID-19; E03.9 Hypothyroidism, unspecified; M79.7 Fibromyalgia; E87.6 Hypokalemia; E66.01 Morbid (severe) obesity due to excess calories; G62.9 Polyneuropathy, unspecified; K21.9 Gastro-esophageal reflux disease without esophagitis; Z68.32 Body mass index [BMI] 32.0-32.9, adult; Z99.81 Dependence on supplemental oxygen; Z90.710 Acquired absence of both cervix and uterus; Z79.01 Long term (current) use of anticoagulants; Z88.6 Allergy status to analgesic agent; Z88.5 Allergy status to narcotic agent; Z88.0 Allergy status to penicillin; Z79.899 Other long term (current) drug therapy
CPT/HCPCS: 36415; 71045; 71275; 80053; 81001; 82550; 83880; 84484; 85025; 85610; 85730; 87426; 87804; 93005; 93306; 94640; 96365; 96375; G0378